=== PATIENT | female | born 1950 | race Caucasian/White ===

== ENCOUNTER 2019-02-27 20:42 | Emergency (ER) | payer MEDICARE, BC ==
[~2019-02-27] VITALS: Ht 170.2 cm; Wt 96.2 kg
[2019-02-27 20:48] VITALS: BP 127/78
--- NOTE | 2019-02-27 21:06 | NUR ---
PT BIBS. C/O "CUT HAND WHILE COOKING TODAY ON A KNIFE" -SOB -ACUTE DISTRESS. AOX4. AMBULATORY W,STEADY GAIT. AWAITING MD BAILEY
== END 2019-02-27 21:48 | disposition home or self-care (01) ==
LOC: ER 20:45
DX: S61.011A Laceration without foreign body of right thumb without damage to nail, initial encounter (principal); S61.210A Laceration without foreign body of right index finger without damage to nail, initial encounter; I10 Essential (primary) hypertension; E78.00 Pure hypercholesterolemia, unspecified; E03.9 Hypothyroidism, unspecified; Z90.89 Acquired absence of other organs; Z60.2 Problems related to living alone; W26.0XXA Contact with knife, initial encounter; Y93.89 Activity, other specified; Y92.89 Other specified places as the place of occurrence of the external cause; Y99.8 Other external cause status
CPT/HCPCS: 12002; 99283; A6402